=== PATIENT | female | born 1945 | race Caucasian/White ===

== ENCOUNTER 2017-05-22 01:22 | Outpatient (CLI) | payer MEDICARE, OTHER | END 2017-05-22 01:23 | disposition home or self-care (01) | LOC: BICMRI 01:22 | PROVIDERS: ATTEND Specialist | DX: M48.54XA Collapsed vertebra, not elsewhere classified, thoracic region, initial encounter for fracture (principal); M51.24 Other intervertebral disc displacement, thoracic region | CPT/HCPCS: 72146 ==

== ENCOUNTER 2017-09-26 09:39 | Outpatient (CLI) | payer MEDICARE, OTHER ==
--- NOTE | 2017-09-26 14:05 | NM ---
WHOLE BODY BONE SCAN: Date: 09/26/17 COMPARISON: CT of the thoracic spine dated 08/30/17. HISTORY: T10 and T12 compression fractures, status post kyphoplasty of T12 over 1 year ago. TECHNIQUE: A whole body bone scan was performed after administration of 31.4 mCi technetium-99m MDP. FINDINGS: No significant abnormal uptake of the radiopharmaceutical is seen in the spine. Slight increased upta ke in the knees may be secondary to degenerative change. Uptake in the maxilla may represent periodon flakita disease. IMPRESSION: No significant abnormal uptake of the radiopharmaceutical in the spine to suggest an acute compressio n fracture. POS: [facility]
== END 2017-09-26 09:40 | disposition home or self-care (01) ==
LOC: NM 09:39
PROVIDERS: ATTEND Specialist
DX: S22.089A Unspecified fracture of T11-T12 vertebra, initial encounter for closed fracture (principal)
CPT/HCPCS: 78306; A9503

== ENCOUNTER 2018-04-17 19:30 | Outpatient (CLI) | payer MEDICARE, OTHER | END 2018-04-17 19:31 | disposition home or self-care (01) | LOC: SLEEPLAB 19:30 | PROVIDERS: ATTEND Internal Medicine Critical Care Medicine | DX: G47.33 Obstructive sleep apnea (adult) (pediatric) (principal); F51.9 Sleep disorder not due to a substance or known physiological condition, unspecified; G47.10 Hypersomnia, unspecified; G47.00 Insomnia, unspecified; R53.83 Other fatigue; I10 Essential (primary) hypertension; R06.83 Snoring; Z68.22 Body mass index [BMI] 22.0-22.9, adult | CPT/HCPCS: 95810 ==